=== PATIENT | female | born 1990 | race Caucasian/White ===

== ENCOUNTER → 2017-10-16 | Outpatient (CLI) | payer BC, OTHER ==
--- NOTE | 2017-10-16 10:36 | RAD ---
EXAM DESCRIPTION: Knee,Right Complete CLINICAL HISTORY: RT KNEE PAIN COMPARISON: None. IMPRESSION: 4 standing views of the right knee show no evidence of acute fracture, focal bone destruction, or joint dislocation. Moderate increased density in the suprapatellar bursa region suggests moderate joint effusion. No advanced arthrosis is seen. Electronically signed by: Mike Jacobo MD 10/16/2017 10:35 AM [facility]
== END | disposition home or self-care (01) ==
LOC: RAD 08:57
PROVIDERS: ATTEND Orthopaedic Surgery
DX: M25.561 Pain in right knee (principal); M25.461 Effusion, right knee

== ENCOUNTER → 2018-01-16 | Outpatient (CLI) | payer OTHER | LOC: LAB.O 09:17 | PROVIDERS: ATTEND Orthopaedic Surgery | DX: M25.561 Pain in right knee (principal) ==

== ENCOUNTER → 2018-05-22 | Outpatient (CLI) | payer SELFPAY | LOC: LAB.O 10:51 | PROVIDERS: ATTEND Orthopaedic Surgery | DX: M25.561 Pain in right knee (principal) ==